=== PATIENT | female | born 1980 | race Caucasian/White ===

== ENCOUNTER 2016-11-26 14:14 | Emergency (ER) | payer BC ==
[~2016-11-26] VITALS: Ht 167.6 cm; Wt 79.1 kg
[~2016-11-26 14:14] MED LIST: ENDOCET 5-3251 EACH PO; MAXALT10 MG PO; Motrin PO; TYLENOL325 M1 PO
[2016-11-26 14:26] VITALS: BP 126/74
== END 2016-11-26 14:56 | disposition left against medical advice (07) ==
LOC: EME 14:14
DX: R21 Rash and other nonspecific skin eruption (principal); Z53.21 Procedure and treatment not carried out due to patient leaving prior to being seen by health care provider
CPT/HCPCS: 99281; 99283